=== PATIENT | male | born 1955 | race Caucasian/White ===

== ENCOUNTER 2019-08-15 08:56 | Outpatient (CLI) | payer OTHER, SELFPAY ==
--- NOTE | ~2019-08-15 | NM_ITS ---
EXAMINATION: NM piotr stress w perfusion DATE: 08/15/2019 12:13 INDICATION: Chest pain. Dyspnea on exertion. TECHNIQUE: Rest images were obtained following intravenous administration of 9.7 mCi Tc99m tetrofosmi n (Myoview). The patient was infused intravenously with Lexiscan (Regadenoson). Then, 28.5 mCi Tc99m tetrofosmin (Myoview) was administered intravenously, and stress images were obtained. Data was recon structed into short axis and horizontal and vertical long axis SPECT images. Gated SPECT images were also obtained. COMPARISON: None. FINDINGS: There is no definite reversible or fixed perfusion abnormality to suggest ischemia or infar ction. There is normal left ventricular chamber size, wall motion and ejection fraction. Left ventr icular ejection fraction measures 68%. IMPRESSION: 1. Normal myocardial perfusion at rest and during stress. 2. Left ventricular ejection fraction measuring 68%. Reviewed, dictated and finalized at location A.
--- NOTE | 2019-08-15 09:00 | ECHO_ITS ---
Patient Info Name: Geraldo Orellana Age: 64 years : 1955 Gender: Male Ht: 70 in Wt: 20 lbs BSA: 0.62 m2 HR: 91 bpm BP: 137 / 102 mmHg Technical Quality: Fair Exam Date: 08/15/2019 9:10 AM Exam Location: [facility] Pulmonary Patient Status: Outpatient Admit Date: 08/15/2019 Staff Ordering Physician: Jerzy Pal DO Subway Guard: Lauren Law RDCS Attending Provider: Jerzy Pal DO Referring Physician: Demarco CONTRERAS; Exam Type: CA echo doppler color flow Study Info Indications R06.00 - Dyspnea, unspecified Complete two-dimensional, color flow and Doppler transthoracic echocardiogram is performed. Summary 1. Left ventricular chamber dimension is normal. 2. Ventricular septum is sigmoid shaped. 3. Left ventricular systolic function is normal, estimated at 60-65%. 4. The left ventricular diastolic function is grade I diastolic dysfunction. 5. E/e' 10 is mildly elevated. 6. Left atrial chamber dimension is mildly enlarged. 7. There is mild aortic valve sclerosis. 8. There is mild mitral valve regurgitation. 9. There is trace tricuspid valve regurgitation. 10. No pulmonary hypertension, estimated pulmonary arterial systolic pressure is 23 mmHg. Left Ventricle E/e' 10 is mildly elevated. Ventricular septum is sigmoid shaped. Left ventricular chamber dimension is normal. Left ventricular systolic function is normal, estimated at 60-65%. The left ventricular diastolic function is grade I diastolic dysfunction. Right Ventricle Right ventricular chamber dimension is normal. Right ventricular systolic function is normal. Left Atria Left atrial chamber dimension is mildly enlarged. Right Atria Right atrial chamber dimension is normal. Aortic Valve The aortic valve is trileaflet. There is mild aortic valve sclerosis. There is no aortic valve stenosis. There is no aortic valve regurgitation. Pulmonic Valve There is no pulmonic regurgitation. Mitral Valve There is no mitral valve stenosis. There is mild mitral valve regurgitation. Tricuspid Valve There is trace tricuspid valve regurgitation. No pulmonary hypertension, estimated pulmonary arterial systolic pressure is 23 mmHg. Pericardium/Pleural There is no pericardial effusion. Inferior Vena Cava Normal inferior vena cava with >50% collapse upon inspiration consistent with normal right atrial pressure, 5 mmHg. Aorta The aortic root size at the sinus of Valsalva is normal. Left Ventricular Outflow Tract Name Value Normal LVOT 2D LVOT Diameter 1.9 cm LVOT Doppler LVOT Peak Gradient 4 mmHg LVOT Mean Gradient 2 mmHg LVOT VTI 18 cm LVOT VTI/AV VTI Ratio 0.9 LVOT Stroke Volume 51 ml LVOT CO 4.3 l/min LVOT CI 6.9 l/min/m2 Pulmonic Valve Name Value Normal
--- NOTE | 2019-08-15 09:01 | ECG_ITS ---
Measurements Intervals [place] Rate: 86 P: 51 KS: 148 QRS: 11 QRSD: 86 T: 25 QT: 365 QTc: 438 Interpretive Statements SINUS RHYTHM NORMAL ECG Electronically Signed On 08-15-2019 9:36:15 CDT by Jerzy Pal D.O.
--- NOTE | 2019-08-15 09:01 | EST_ITS ---
Patient Info Name: Geraldo Orellana Age: 64 years : 1955 Gender: Male Ht: 70 in Wt: 220 lbs BSA: 2.25 m2 Exam Date: 08/15/2019 11:10 AM Exam Location: [facility] Stress Patient Status: Outpatient Admit Date: 08/15/2019 Staff Ordering Physician: Jerzy Anand DO Attending Provider: JERZY ANAND DO Exercise Technologist: Lauren Law RDCS Exercise Physician: Jerzy Anand DO Exam Type: CA stress piotr w NM Study Info Indications R07.9 - Chest pain, unspecified A regadenoson stress test was performed. Summary 1. 1. Negative lexiscan stress test for ischemic ST changes by ECG criteria. 2. 2. Baseline hypertension. 3. 3. Nuclear scan to follow and will be reported separately. Please correlate with it. 4. 4. Patient informed of the above results. Protocol: Lexiscan Stress ECG Details Stage: REST Duration (min): 0 min : 58 sec HR (bpm): 80 SBP (mmHg): 135 DBP (mmHg): 101 Stage: REST Duration (min): 4 min : 43 sec HR (bpm): 79 SBP (mmHg): 135 DBP (mmHg): 101 Stage: STAGE 1 Duration (min): 1 min : 0 sec HR (bpm): 93 SBP (mmHg): 153 DBP (mmHg): 102 Stage: RECOVERY Duration (min): 1 min : 0 sec HR (bpm): 106 SBP (mmHg): 133 DBP (mmHg): 93 Stage: RECOVERY Duration (min): 2 min : 0 sec HR (bpm): 104 SBP (mmHg): 133 DBP (mmHg): 93 Stage: RECOVERY Duration (min): 3 min : 0 sec HR (bpm): 99 SBP (mmHg): 134 DBP (mmHg): 92 Stage: RECOVERY Duration (min): 3 min : 4 sec HR (bpm): 98 SBP (mmHg): 134 DBP (mmHg): 92 Rest HR: 79 bpm Peak HR: 107 bpm Rest Sys BP: 135 mmHg Peak Sys BP: 153 mmHg Max Pred HR: 156 bpm % Max Pred HR: 69 % Target HR: 133 bpm Max RPP: 16,371 bpm*mmHg Termination Reason: Completed protocol Cardiac Symptoms: Upset stomach Total Time: 1 min : 0 sec Rest Matson BP: 101 mmHg Peak Matson BP: 102 mmHg Total Dose: 0.4 mg Resting ECG Sinus rhythm, borderline T wave in ant/inf leads. Stress ECG No ST changes. Arrhythmias None. Report Signatures
== END 2019-08-15 08:57 | disposition home or self-care (01) ==
PROVIDERS: Visit Provider Internal Medicine Cardiovascular Disease
DX: R07.9 Chest pain, unspecified (principal); R06.02 Shortness of breath; I10 Essential (primary) hypertension; I35.8 Other nonrheumatic aortic valve disorders
CPT/HCPCS: 78452; 93005; 93017; 93306; A9502; J2785

== ENCOUNTER 2020-03-19 10:35 | Emergency (ER) | payer OTHER, SELFPAY ==
--- NOTE | 2020-03-19 10:38 | ED.GENADULT ---
HPI - General Adult General Chief complaint: Skin/Abscess/Foreign Body Stated complaint: Rash Time Seen by Provider: 03/19/20 10:38 Source: patient Mode of arrival: ambulatory Limitations: no limitations History of Present Illness HPI narrative: 64-year-old male patient presents to the [facility] with complaints of just overall not feeling well since yesterday. Patient states he is feels very drained and states he just overall does not feel good. Patient states he has had some body aches, chills. Patient does present today with a low-grade fever. Patient also complains of a headache. Patient states insert there is a little bit of a rash to the left side of the forehead. Also feels like his lymph node is swollen to the neck and left ear area. Denies any chest pain or shortness of breath. Denies any coughing. Patient states he did take some ibuprofen for the headache symptoms. Patient denies being around with anybody with Covid that he is aware of but states he does live with his brother who does go out in public a lot. Patient states he himself has been trying to isolate as much as possible. Patient states he did get a flu shot this year. Related Data Home Medications Medication Instructions Recorded Confirmed Lactobacillus 1 cap PO DAILY 08/08/19 03/19/20 no.51-Bifidobacterium no.4 50 billion cell capsule aspirin 81 mg chewable tablet 81 mg PO DAILY 08/08/19 03/19/20 cholecalciferol (vitamin D3) 25 25 mcg PO DAILY 08/08/19 03/19/20 mcg (1,000 unit) capsule esomeprazole magnesium 20 mg 20 mg PO DAILY 08/08/19 03/19/20 capsule,delayed release omega 1-zsh-owf-fish oil 1,000 mg 1 cap PO DAILY 08/08/19 03/19/20 (120 mg-180 mg) capsule sertraline 50 mg tablet 100 mg PO DAILY tablet 08/08/19 03/19/20 simvastatin 40 mg tablet 40 mg PO DAILY 08/08/19 03/19/20 Allergies Allergy/AdvReac Type Severity Reaction Status Date / Time No Known Drug Allergies Allergy Mild none Verified 03/19/20 10:36 Review of Systems Review of Systems: Narrative: CONSTITUTIONAL: Positive low-grade fever, body aches and chills, denies sweats. EYES: Denies visual changes, redness, or discharge. ENT: Denies rhinorrhea, congestion, sore throat, or otalgia. CARDIOVASCULAR: Denies chest pain, palpitations, or edema. RESPIRATORY: Denies cough or dyspnea. GASTROINTESTINAL: Denies abdominal pain, nausea, vomiting, or diarrhea. GENITOURINARY: Denies dysuria or hematuria. SKIN: Positive rash with itching to forehead MUSCULOSKELETAL: Denies back pain, joint pain, or myalgia. NEUROLOGIC: Positive headache, denies numbness, or weakness. Positive fatigue PSYCHIATRIC: Denies anxiety or depression. [facility] Past Medical History Medical History Abdominal aneurysm Chondromalacia Depression Diverticulitis Gall stone Herniated disc Kidney stone Neuropathy Normal colonoscopy Plantar fasciitis Family History Family History Father Coronary artery disease Cerebrovascular accident Dementia Mother Coronary artery disease Sibling Coronary artery disease Sibling Cancer Social History Social History Gender identity (if verbalized by the patient): Male Comments At the time of my signature I agree with nursing past medical history, surgical, social, and family history. There is no relevant family history pertinent to the presenting complaint. Exam Narrative: Exam Narrative: GENERAL: Well-appearing, well-nourished, and in no acute distress. HEAD: Normocephalic, atraumatic. EYES: PERRLA and EOMI. ENT: Nares clear, no rhinorrhea or epistaxis. Mucous membranes moist. Posterior pharynx with no erythema, tonsillar Netta, exudates or lesions present. Bilateral TMs are clear no erythema or foreign bodies to the canal. There is a little bit of fluid noted behind
[2020-03-19 10:44] VITALS: BP 143/95; PULSE 96; RESP 16; TEMP 37.7; O2SAT 98
== END 2020-03-19 11:35 | disposition home or self-care (01) ==
PROVIDERS: Emergency Provider Nurse Practitioner Family
DX: Z20.828 Contact with and (suspected) exposure to other viral communicable diseases (principal); R21 Rash and other nonspecific skin eruption; F32.9 Major depressive disorder, single episode, unspecified
CPT/HCPCS: 87804; 99213; G0463

== ENCOUNTER 2020-03-22 07:00 | Outpatient (NON) | payer OTHER, SELFPAY ==
[2020-03-23 12:14] LABS: SARS-CoV-2 RNA PCR Negative
== END 2020-03-22 07:01 ==
LOC: ANHCOVIDDT 07:07
PROVIDERS: Visit Provider Nurse Practitioner Family
DX: Z20.828 Contact with and (suspected) exposure to other viral communicable diseases (principal); R51.9 Headache, unspecified; R52 Pain, unspecified; R53.83 Other fatigue
CPT/HCPCS: 87635; C9803; U0003

== ENCOUNTER 2022-11-13 08:49 | Outpatient (CLI) | payer MEDICARE, OTHER, SELFPAY ==
--- NOTE | ~2022-11-13 | XR_ITS ---
Lumbosacral Spine: AP and lateral views Clinical History: Pain Findings: The normal lordotic curve is maintained. The vertebral bodies and posterior elements are i ntact. There is mild degenerative disc narrowing throughout the lumbar spine. There is mild to modera te facet arthropathy throughout the lumbar spine. The sacroiliac joints are normally outlined. Impression: Mild degenerative spondylosis, as above. Reviewed, dictated and finalized at location M. Impression: Mild degenerative spondylosis, as above.
--- NOTE | ~2022-11-13 | US_ITS ---
EXAMINATION: US aorta DATE: 11/13/2022 10:49 INDICATION: Abdominal aortic aneurysm TECHNIQUE: Grayscale, color Doppler, and pulsed Doppler images of the aorta and common iliac arteries were obtained. COMPARISON: None. FINDINGS: The proximal aorta measures 2.9 cm. The mid aorta measures 2.6 cm. Fusiform aneurysm in the distal ao rta measuring up to 3.4 cm in maximal AP diameter.. The right common iliac artery measures 1.4 cm. Th e left common iliac artery measures 1.4 cm. IMPRESSION: 1. Fusiform infrarenal abdominal aortic aneurysm measuring up to 3.4 cm in maximal AP diameter. Reviewed, dictated and finalized at location A. IMPRESSION: 1. Fusiform infrarenal abdominal aortic aneurysm measuring up to 3.4 cm in maxi mal AP diameter.
== END 2022-11-13 08:50 | disposition home or self-care (01) ==
PROVIDERS: PCP Physician Assistant; Visit Provider Physician Assistant
DX: M54.50 Low back pain, unspecified (principal); F17.200 Nicotine dependence, unspecified, uncomplicated; I71.40 Abdominal aortic aneurysm, without rupture, unspecified; R07.9 Chest pain, unspecified; M43.06 Spondylolysis, lumbar region
CPT/HCPCS: 72100; 76775

== ENCOUNTER 2022-11-20 09:13 | Outpatient (CLI) | payer MEDICARE, OTHER, SELFPAY ==
--- NOTE | ~2022-11-20 | CT_ITS ---
EXAMINATION: CT lung screening DATE: 11/20/2022 09:36 INDICATION: NICOTINE DEPENDENCE TECHNIQUE: Computed tomography (CT) of the chest was performed without intravenous contrast. Addition al 3D reconstructions utilizing coronal maximum intensity projection (MIP) were performed. Automated exposure control and iterative reconstruction technique were employed. The dose-length product was 13 6.22 mGy-cm. COMPARISON: None FINDINGS: Tiny calcified nodule at the left apex. 2 mm right lower lobe nodule, not definitively calcified on s eries 4, image 61. No pneumonia, pulmonary edema or pleural effusion. Heart size is normal. No perica rdial effusion. Small sliding-type hiatal hernia. Thoracic aorta is normal in caliber. No pathologica lly enlarged thoracic lymphadenopathy. Visualized upper abdomen is unremarkable. Severe lower cervica l and mild thoracic spondylosis. IMPRESSION: 1. Lung-RADS category 2: Benign appearance or behavior. Continue annual screening with noncontrast lo w-dose chest CT in 12 months. Reviewed, dictated and finalized at location L. IMPRESSION: 1. Lung-RADS category 2: Benign appearance or behavior. Continue annual screeni ng with noncontrast low-dose chest CT in 12 months.
== END 2022-11-20 09:14 | disposition home or self-care (01) ==
PROVIDERS: PCP Physician Assistant; Visit Provider Physician Assistant
DX: Z12.2 Encounter for screening for malignant neoplasm of respiratory organs (principal); Z87.891 Personal history of nicotine dependence
CPT/HCPCS: 71271

== ENCOUNTER 2022-12-10 12:34 | Outpatient (CLI) | payer MEDICARE, OTHER, SELFPAY ==
--- NOTE | 2022-12-10 | ECHO_ITS ---
Patient Info Name: Geraldo Orellana Age: 67 years : 1955 Gender: Male Ht: 70 in Wt: 210 lbs BSA: 2.19 m2 HR: 103 bpm BP: 130 / 99 mmHg Heart Rhythm: Sinus Rhythm Technical Quality: Fair Exam Date: 12/10/2022 12:50 PM Exam Location: [facility] Pul[facility] Patient Status: Outpatient Admit Date: 12/10/2022 Staff Ordering Physician: MarcusRosmery Transmission Worker: Jovita Mccarthy RDCS Attending Provider: Rosmery Gmoez Exam Type: CA echo doppler color flow Study Info Indications - Tabacco use R07.89 - Other chest pain Complete two-dimensional, color flow and Doppler transthoracic echocardiogram is performed. Summary 1. Complete two-dimensional, color flow and Doppler transthoracic echocardiogram is performed. 2. Left ventricular chamber dimension is normal. 3. Ventricular septum is sigmoid shaped. No LVOT obstruction. 4. Left ventricular systolic function is normal, estimated at 60-65%. 5. There is mild concentric increased left ventricular wall thickness. 6. The left ventricular diastolic function is grade I diastolic dysfunction. 7. E/e' 13 is mildly elevated. 8. There is mild aortic valve sclerosis. 9. There is mild mitral valve regurgitation. 10. There is trace tricuspid valve regurgitation. 11. No pulmonary hypertension, estimated pulmonary arterial systolic pressure is 27 mmHg. Left Ventricle E/e' 13 is mildly elevated. Ventricular septum is sigmoid shaped. No LVOT obstruction. Left ventricular chamber dimension is normal. Left ventricular systolic function is normal, estimated at 60-65%. There is mild concentric increased left ventricular wall thickness. The left ventricular diastolic function is grade I diastolic dysfunction. Right Ventricle Right ventricular systolic function is normal and with normal TAPSE 2.0 cm. Right ventricular chamber dimension is normal. Left Atria Left atrial chamber dimension is normal. Right Atria Right atrial chamber dimension is normal. Aortic Valve The aortic valve is trileaflet. There is mild aortic valve sclerosis. There is no aortic valve stenosis. There is no aortic valve regurgitation. Pulmonic Valve There is no pulmonic regurgitation. Mitral Valve There is no mitral valve stenosis. There is mild mitral valve regurgitation. Tricuspid Valve There is trace tricuspid valve regurgitation. No pulmonary hypertension, estimated pulmonary arterial systolic pressure is 27 mmHg. Pericardium/Pleural There is no pericardial effusion. Inferior Vena Cava Normal inferior vena cava with >50% collapse upon inspiration consistent with normal right atrial pressure, 5 mmHg. Aorta The aortic root size at the sinus of Valsalva is normal. Left Ventricular Outflow Tract Name Value Normal LVOT 2D LVOT Diameter 2.0 cm LVOT Doppler LVOT Peak Gradient 5 mmHg LVOT Mean Gradient 3 mmHg LVOT VTI 18 cm LVOT VTI/AV VTI Ratio 0.8 LVOT Stroke Volume 60 ml LVOT CO 4.9 l/min LVOT CI 2.2 l/min/m2 Pulmonic Valve
--- NOTE | 2022-12-10 14:43 | WPDPFTINT ---
PFT Procedure Performed PFT Procedure Performed Plethysmography (Lung Vol) Diffusing Cap (DLCO) Flow Vol Loop Spirometry w/o Bronchodil PFT Interpretation This is a pulmonary function test with spirometry, plethysmography and diffusing capacity. The test was performed and results interpreted in accordance with the 2019 and 2005 ATS/ERS Task Force guidelines respectively using the Global Lung Function Initiative-2012 reference equations. Patient demonstrated good effort and cooperation. Reproducibility criteria were met. The quality of the spirometry maneuver was Grade A. Findings: Spirometry: The contour the inspiratory and expiratory flow tracing are normal. The FVC is 3.63 L, 83% predicted. The FEV1 is 2.63 L, 79% predicted. The FEV1: FVC ratio 73%. Plethysmography: The total lung capacity is 6.25 L, 89% predicted. The functional residual capacity is 3.08 L, 83% predicted. The residual volume is 2.62 L, 110% predicted. Diffusing capacity: The diffusing capacity unadjusted for hemoglobin and carboxyhemoglobin is 19.8, 74% predicted. The diffusing capacity adjusted for alveolar volume is 3.63, 90% predicted., Impression: The spirometry is normal without evidence of an obstructive abnormality. The lung volumes are normal. The diffusing capacity is normal. There are no prior studies for comparison
== END 2022-12-10 12:35 | disposition home or self-care (01) ==
LOC: ANHCARD 12:35
PROVIDERS: PCP Physician Assistant; Visit Provider Physician Assistant
DX: M54.50 Low back pain, unspecified (principal); F17.200 Nicotine dependence, unspecified, uncomplicated; I71.40 Abdominal aortic aneurysm, without rupture, unspecified; R07.9 Chest pain, unspecified; I35.8 Other nonrheumatic aortic valve disorders
CPT/HCPCS: 93306; 94375; 94726; 94729

== ENCOUNTER 2024-06-28 14:54 | Outpatient (CLI) | payer MEDICARE, OTHER, SELFPAY ==
--- NOTE | ~2024-06-28 | CT_ITS ---
CT Scan of the Chest without Contrast: Clinical Indication: Lung cancer screening, nicotine dependence Technique: Contiguous sections were acquired throughout the chest without intravenous contrast. Dose reduction technique was used on this scan by utilizing automated exposure control and iterative recon struction technique. The dose-length product (DLP) was 160.05 mGy-cm. COMPARISON: 11/20/2022 Findings: There is no evidence of any significant mediastinal, hilar or axillary lymphadenopathy. The mediastin al soft tissues appear normal. There is no evidence of pleural or pericardial effusion. The lungs are clear. No pulmonary nodules or infiltrates are noted. Images through the upper abdomen reveal small nonobstructing left renal stone. Gallbladder contracted with calcified stones.. Impression: Lung RADS 1: Negative. 12 month follow-up screening CT advised. Reviewed, dictated and finalized at [facility]. Impression: Lung RADS 1: Negative. 12 month follow-up screening CT advised.
--- NOTE | ~2024-06-28 | XR_ITS ---
[id number] Ordering provider: Rosmery Tran, [place] History: . cervicalgia, CHRONIC PAIN, PROGRESSIVELY GETTING WORSE . Comparison: None. FINDINGS: VERTEBRAL BODIES: Normal height and alignment. No visible fracture or subluxation. The dens is intact . Lucency over the inferior spinous process of C5 is not excluded. If clinically warranted CT is advi sed. DISK SPACES: Narrowing of the disc C6-7. PARASPINOUS SOFT TISSUES: No prevertebral soft tissue swelling. IMPRESSION: Possible lucency in the inferior articular process of C5. If clinically warranted CT is advised. Othe rwise, No acute osseous abnormality cervical spine. Degenerative disc disease at the level of C6-C7. Reviewed, dictated and finalized at location A. IMPRESSION: Possible lucency in the inferior articular process of C5. If clinically warrant ed CT is advised. Otherwise, No acute osseous abnormality cervical spine. Degenerative disc disease at the level of C6-C7.
== END 2024-06-28 14:55 | disposition home or self-care (01) ==
PROVIDERS: PCP Physician Assistant; Visit Provider Physician Assistant
DX: M54.2 Cervicalgia (principal); Z12.2 Encounter for screening for malignant neoplasm of respiratory organs; Z87.891 Personal history of nicotine dependence
CPT/HCPCS: 71271; 72040

== ENCOUNTER 2024-07-27 14:55 | Outpatient (CLI) | payer MEDICARE, OTHER, SELFPAY ==
--- NOTE | ~2024-07-27 | CT_ITS ---
Noncontrast CT scan of the cervical spine Technique: Multiple contiguous axial [address] images of the cervical spine were obtained and rec onstructed in 2D sagittal and coronal planes on the acquisition scanner. Dose reduction technique was used on this scan by utilizing automated exposure control, adjustment of the mA and/or kV according to patient size. The dose-length product (DLP) was 462.67 mGy-cm. Clinical History: Pain Findings: No fractures or dislocations. Osseous alignment appears anatomic. At C2-C3, there is no disc bulge or herniation identified. No spinal canal stenosis or neural foramin al narrowing evident. At C3-C4, there is no definite disc bulge or herniation. No spinal canal stenosis or neural foraminal narrowing evident. At C4-C5, there is no definite disc bulge or herniation. No spinal canal stenosis or definite neural foraminal narrowing. At C5-C6, there is mild disc ossify compress with probable mild right neural foraminal narrowing. No left neural foraminal narrowing. No canal stenosis or cord compression. At C6-C7, there is moderate to advanced degenerative disc narrowing. There is mild disc osteophyte co mplex. There is probable mild bilateral neural foraminal narrowing. No definite canal stenosis. No prevertebral soft tissue swelling. Impression: No fracture or subluxation of the cervical spine. Mild degenerative spondylosis overall, as above. Reviewed, dictated and finalized at [facility]. Impression: No fracture or subluxation of the cervical spine. Mild degenerative spondylosis overall, as above.
== END 2024-07-27 14:56 | disposition home or self-care (01) ==
LOC: ANHIMG 14:58
PROVIDERS: PCP Physician Assistant; Visit Provider Physician Assistant
DX: M47.812 Spondylosis without myelopathy or radiculopathy, cervical region (principal)
CPT/HCPCS: 72125

== ENCOUNTER 2024-12-19 08:56 | Outpatient (CLI) | payer MEDICARE, OTHER, SELFPAY ==
--- NOTE | 2024-12-19 09:00 | NEURO_ITS ---
Impression: # Complains of balance problems. ? # Axonal sensori motor Neuropathy with neurogenic changes on Needle/ EMG exam. ? # Clinical correlation recommended. Nerve Conduction Studies ?Stim Site NR Peak (ms) P-T Amp (?V) Site1 Site2 Delta-P (ms) Dist (cm) Ta (m/s) Left Sup Fibular Anti Sensory (Ant Lat Mall) 14 cm ? 3.3 3.8 14 cm Ant Lat Mall 3.3 16.0 48 Right Sup Fibular Anti Sensory (Ant Lat Mall) 14 cm ? 4.2 8.6 14 cm Ant Lat Mall 4.2 16.0 38 Left Sural Anti Sensory (Lat Mall) Calf ? 3.5 7.7 Calf Lat Mall 3.5 16.0 46 Right Sural Anti Sensory (Lat Mall) Calf ? 4.5 6.2 Calf Lat Mall 4.5 16.0 36 ?Stim Site NR Onset (ms) O-P Amp (mV) Site1 Site2 Delta-0 (ms) Dist (cm) Ta (m/s) Left Peroneal Motor (Vastus Med) Ankle ? 4.1 1.6 Popit Ankle 11.6 43.0 37 Popit ? 15.7 1.7 Right Peroneal Motor (Vastus Med) Ankle ? 3.7 1.5 Popit Ankle 10.2 43.0 42 Popit ? 13.9 2.4 Left Tibial Motor (Abd Velázquez Brev) Ankle ? 4.3 1.6 Knee Ankle 10.7 43.0 40 Knee ? 15.0 1.7 Right Tibial Motor (Abd Velázquez Brev) Ankle ? 3.9 4.0 Knee Ankle 10.6 45.0 42 Knee ? 14.5 1.1 F Wave Studies ?NR F-Lat (ms) L-R F-Lat (ms) Left Peroneal (Mrkrs) (EDB) ? 60.06 0.34 Right Peroneal (Mrkrs) (EDB) ? 59.72 0.34 Left Tibial (Mrkrs) (Abd Hallucis) ? 60.55 1.49 Right Tibial (Mrkrs) (Abd Hallucis) ? 59.06 1.49 Electromyography ?Side Muscle Nerve Root Ins Act Fibs Amp Dur Recrt Comment Right AntTibialis Dp Br Fibular L4-5 Nml Nml Nml Nml Nml Left AntTibialis Dp Br Fibular L4-5 Nml Nml Nml Nml Nml Right Ext Dig Brev Dp Br Fibular L5, S1 Nml Nml Nml >12ms Nml Left Ext Dig Brev Dp Br Fibular L5, S1 Nml Nml Nml >12ms Nml Right Fibularis Long Sup Br Fibular L5-S1 Nml Nml Nml >12ms Nml Left Fibularis Long Sup Br Fibular L5-S1 Nml Nml Nml >12ms Nml Right Flex Dig Long Tibial L5-S2 Nml Nml Nml >12ms Nml Left Flex Dig Long Tibial L5-S2 Nml Nml Nml >12ms Nml Right Gastroc Tibial S1-2 Nml Nml Nml >12ms Nml Left Gastroc Tibial S1-2 Nml Nml Nml >12ms Nml Right QuadratusFem QuadFemoris L4-5, S1 Nml Nml Nml Nml Nml Left QuadratusFem QuadFemoris L4-5, S1 Nml Nml Nml Nml Nml
== END 2024-12-19 08:57 | disposition home or self-care (01) ==
LOC: ANHNEURO 08:56
PROVIDERS: PCP Physician Assistant; Visit Provider Physician Assistant
DX: G62.9 Polyneuropathy, unspecified (principal)
CPT/HCPCS: 95886; 95910